=== PATIENT | male | born 2005 | race Caucasian/White ===

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

== ENCOUNTER → 2024-04-28 16:08 | Outpatient (CLI) | payer OTHER, MEDICAID, SELFPAY | PROVIDERS: PCP Family Medicine; Referring Provider Nurse Practitioner Family; Visit Provider Nurse Practitioner Family | DX: Z77.21 Contact with and (suspected) exposure to potentially hazardous body fluids (principal) | CPT/HCPCS: 36415; 86803; 87340; 87389 ==